=== PATIENT | female | born 1960 | race Two or more races ===

== ENCOUNTER 2020-09-02 16:01 | Inpatient (IN) | payer MEDICAID ==
[~2020-09-02] VITALS: Ht 165.1 cm; Wt 127.9 kg
[2020-09-02] MEDS ORDERED: AZITHROMYCIN 500 MG in DEXT 5% WATER 250 ML IV ONE (16:45)
[2020-09-02] MEDS ORDERED: CEFTRIAXONE 1 G PREMIX 50 ML IV ONE (16:45)
[2020-09-02] MEDS ORDERED: DEXAMETHASONE 10 MG/ML VIAL IV ONE (17:00)
[2020-09-02 17:46] LABS: BASOPHILS % 0.7 % (0.0-2.0); EOSINOPHILS % 0.5 % (0.0-5.0); HEMATOCRIT. 29.6 % (36.0-48.0); HEMOGLOBIN. 9.6 g/dL (12.0-16.0); LYMPHOCYTES % 17.4 % (20.0-50.0); MEAN CORPUSCULAR HEMOGLOBIN 24.6 pg (28.0-32.0); MEAN CORPUSCULAR VOLUME 75.9 fL (81.0-99.0); MEAN PLATELET VOLUME 8.1 fl (7.4-10.4); MONOCYTES % 6.7 % (2.0-8.0); NEUTROPHILS % 74.7 % (40.0-76.0); PLATELET 465 x1000/uL (130-400); RED CELL DISTRIBUTION WIDTH 15.2 % (11.6-14.6)
[2020-09-02 17:50] LABS: CHLORIDE 98 mEq/L (98-107)
[2020-09-02 17:54] LABS: CLARITY URINE CLOUDY (CLEAR); COLOR URINE YELLOW (YELLOW); KETONES URINE 1+ (NEGATIVE); LEUKOCYTE ESTERASE URINE 1+ (NEGATIVE); NITRITE URINE NEGATIVE (NEGATIVE); OCCULT BLOOD URINE 2+ (NEGATIVE); PH URINE 5.5 (4.5-8.0); PROTEIN URINE 1+ (NEGATIVE); SPECIFIC GRAVITY URINE 1.017 (1.005-1.030)
[2020-09-02 17:54] LABS: INR 1.1; PARTIAL THROMBOPLASTIN TIME 28.2 sec (23.4-31.0); PROTHROMBIN TIME 11.7 sec (9.6-11.0)
[2020-09-03] MEDS ORDERED: BENZONATATE 100MG CAPSULE PO PRN (08:30)
[2020-09-03] MEDS ORDERED: ACETAMINOPHEN 325MG TABLET PO PRN (08:30)
[2020-09-03] MEDS ORDERED: ONDANSETRON HCL 4MG/2ML INJ IV PRN (08:30)
[2020-09-03] MEDS ORDERED: DEXTROSE 50% WATER 50ML SYRINGE IV PRN (08:30)
[2020-09-03] MEDS: BLOOD SUGAR DIAGNOSTIC STRIP TEST SCH ×4 (09:24→21:48)
[2020-09-03] MEDS: AZITHROMYCIN 250 MG TABLET PO SCH (09:25)
[2020-09-03] MEDS: DEXAMETHASONE 6MG TABLET PO SCH (09:25)
[2020-09-03] MEDS: INSULIN LISPRO 100 UNITS/ML SUBCUT SCH ×4 (09:25→21:47)
[2020-09-03 10:30] VITALS: BP 141/79
[2020-09-03] MEDS ORDERED: LISI40TA4 PO (10:53)
[2020-09-03] MEDS ORDERED: FERR325T6 MT (10:53)
[2020-09-03] MEDS ORDERED: ASPI-986 MT (10:53)
[2020-09-03] MEDS ORDERED: METF-414 MT (10:53)
[2020-09-03] MEDS ORDERED: FURO-151 PO (10:54)
[2020-09-03 12:00] VITALS: BP 148/67
[2020-09-03 16:00] VITALS: BP 150/74
[2020-09-03] MEDS ORDERED: CEFTRIAXONE 1 G PREMIX 50 ML IV SCH (18:00)
[2020-09-03] MEDS: CEFTRIAXONE 1,000 MG in DEXTROSE 5% WATER 50 ML IV SCH (18:53)
[2020-09-03] MEDS ORDERED: CLONIDINE 0.1MG TABLET PO PRN (19:00)
[2020-09-03] MEDS: ENOXAPARIN 40MG/0.4ML SYR SUBCUT SCH (19:58)
[2020-09-03 20:00] VITALS: BP 150/78
[2020-09-04] VITALS: BP 135/65
[2020-09-04 04:38] VITALS: BP 136/66
[2020-09-04] MEDS: BLOOD SUGAR DIAGNOSTIC STRIP TEST SCH ×4 (06:05→21:00)
[2020-09-04] MEDS: INSULIN LISPRO 100 UNITS/ML SUBCUT SCH ×4 (06:26→22:20)
[2020-09-04] MEDS: ENOXAPARIN 40MG/0.4ML SYR SUBCUT SCH ×2 (08:50→20:00)
[2020-09-04] MEDS: DEXAMETHASONE 6MG TABLET PO SCH (08:50)
[2020-09-04] MEDS: AZITHROMYCIN 250 MG TABLET PO SCH (08:50)
[2020-09-04 12:00] VITALS: BP 135/63
[2020-09-04 16:00] VITALS: BP 163/79
[2020-09-04] MEDS: CEFTRIAXONE 1,000 MG in DEXTROSE 5% WATER 50 ML IV SCH (17:22)
[2020-09-04 20:00] VITALS: BP 167/86
[2020-09-04] MEDS ORDERED: INSULIN GLARGINE UD 100 UNITS/ML SYR SUBCUT NR (20:30)
[2020-09-04] MEDS: AMLODIPINE 10MG TABLET PO SCH (22:13)
[2020-09-05] VITALS: BP 151/64
[2020-09-05 00:07] LABS: HEMATOCRIT. 30.4 % (36.0-48.0); HEMOGLOBIN. 9.6 g/dL (12.0-16.0); MEAN CORPUSCULAR HEMOGLOBIN 24.2 pg (28.0-32.0); MEAN CORPUSCULAR VOLUME 76.9 fL (81.0-99.0); MEAN PLATELET VOLUME 7.8 fl (7.4-10.4); PLATELET 427 x1000/uL (130-400); RED BLOOD CELL COUNT 3.96 mill/uL (4.2-5.4); RED CELL DISTRIBUTION WIDTH 15.7 % (11.6-14.6)
[2020-09-05 00:25] LABS: CHLORIDE 103 mEq/L (98-107)
[2020-09-05 01:05] LABS: PLATELET ESTIMATE NORMAL
[2020-09-05 04:00] VITALS: BP 141/60
[2020-09-05] MEDS: BLOOD SUGAR DIAGNOSTIC STRIP TEST SCH ×2 (06:51→11:49)
[2020-09-05] MEDS: INSULIN LISPRO 100 UNITS/ML SUBCUT SCH ×2 (07:27→12:37)
[2020-09-05 08:00] VITALS: BP 141/70
[2020-09-05] MEDS: AZITHROMYCIN 250 MG TABLET PO SCH (09:24)
[2020-09-05] MEDS: AMLODIPINE 10MG TABLET PO SCH (09:24)
[2020-09-05] MEDS: ENOXAPARIN 40MG/0.4ML SYR SUBCUT SCH (09:24)
[2020-09-05] MEDS: DEXAMETHASONE 6MG TABLET PO SCH (09:24)
[2020-09-05] MEDS ORDERED: INSULIN GLARGINE UD 100 UNITS/ML SYR SUBCUT SCH (10:00)
[2020-09-05 12:00] VITALS: BP 142/71
[2020-09-05 12:26] VITALS: BP 142/71
== END 2020-09-05 16:30 | disposition home or self-care (01) | DRG 137 ==
LOC: ER 16:20 → 7WST 23:26 → EDBEDREQTM 23:59 → EDBEDREQ 23:59 → ENRESERV 09-03 09:25
PROVIDERS: ADMIT Internal Medicine; ATTEND Internal Medicine
DX: U07.1 COVID-19 (principal); J96.00 Acute respiratory failure, unspecified whether with hypoxia or hypercapnia; J12.82 Pneumonia due to coronavirus disease 2019; E87.6 Hypokalemia; E87.2 Acidosis; I10 Essential (primary) hypertension; E66.9 Obesity, unspecified; E44.0 Moderate protein-calorie malnutrition; E11.9 Type 2 diabetes mellitus without complications; D64.9 Anemia, unspecified; Z68.42 Body mass index [BMI] 45.0-49.9, adult; Z96.659 Presence of unspecified artificial knee joint
CPT/HCPCS: 36415; 71045; 80048; 80053; 81003; 82962; 83036; 83605; 84145; 84484; 85025; 93005; 96365; 99291; C1893; C9803; J0456; J0696; J1100; J1650; J1815; J7040; J7060; U0003